=== PATIENT | male | born 2000 | race Caucasian/White ===

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

== ENCOUNTER 2024-09-03 23:32 | Emergency (ER) | payer MEDICAID ==
[~2024-09-03] VITALS: Ht 182.9 cm; Wt 95.5 kg
[~2024-09-03 23:32] MED LIST: ARIP10TA38 PO; ATOM10CA4 PO; ATOM40CA9 PO; DIVA-153 PO; GEMF-77 PO; MELA5TAB40 PO; NALT50TA6 PO; OMEG-135 PO; SERT-440 PO; TRAZ150T80 PO
[2024-09-04] MEDS ORDERED: SODIUM CHLORIDE 0.9% 1,000 ML IV ONE (00:30)
[2024-09-04 00:35] VITALS: BP 135/89; PULSE 109; RESP 16; TEMP 98.7; O2SAT 100
== END 2024-09-04 01:00 | disposition home or self-care (01) ==
LOC: EMS 23:34
DX: R73.9 Hyperglycemia, unspecified (principal); Z79.899 Other long term (current) drug therapy
CPT/HCPCS: 82962; 99282; Z7502